=== PATIENT | female | born 1945 | race Caucasian/White ===

== ENCOUNTER 2018-12-08 07:53 | Outpatient (CLI) | payer MEDICARE, OTHER, SELFPAY ==
[2018-12-08 10:51] LABS: Abs Immature Grans 0.02 k/cumm (0.0-0.09); Absolute Basophil Count 0.03 k/cumm (0.0-0.2); Absolute Eosinophil Count 0.17 k/cumm (0.0-0.7); Absolute Lymphocyte Count 2.37 k/cumm (1.2-3.4); Absolute Monocyte Count 0.74 k/cumm (0.11-0.7); Absolute Neutrophil Count 3.05 k/cumm (1.2-6.7); Basophils % 0.5; Eosinophils % 2.7; HCT 41.4 % (36.0-46.0); HGB 14.2 g/dL (12.0-15.5); Immature Grans % 0.3; Lymphocytes % 37.1; Mean Corp. HGB Concentration 34.3 g/dL (32.0-36.0); Mean Corpuscular Hemoglobin 31.8 pg (27.0-33.0); Mean Corpuscular Volume 92.6 fL (80-95); Mean Platelet Volume 9.3 fL (8.0-11.0); Monocytes % 11.6; Neutrophils % 47.8; Platelet Count 285 x1000/uL (130-400); RBC 4.47 m/cumm (4.00-5.20); RBC Distribution Width 12.6 % (11.7-14.6); White Blood Cell Count 6.38 k/cumm (4.4-10.8)
[2018-12-08 11:49] LABS: Anion Gap 9.1 mmol/L (3-11); BUN 23 mg/dL (7-18); CO2 30.9 mmol/L (21.0-32.0); CREATININE 0.83 mg/dL (0.55-1.02); Calcium 9.4 mg/dL (8.5-10.1); Chloride 99 mmol/L (98-107); Glucose 89 mg/dL (70-100); Sodium 139 mmol/L (136-145); TSH 6.57 uIU/mL (0.358-3.74)
== END 2018-12-08 08:13 ==
PROVIDERS: PCP Internal Medicine; Visit Provider Internal Medicine
DX: E03.9 Hypothyroidism, unspecified (principal); K22.5 Diverticulum of esophagus, acquired
CPT/HCPCS: 36415; 80048; 84443; 85025

== ENCOUNTER 2019-01-18 13:29 | Outpatient (CLI) | payer MEDICARE, OTHER, SELFPAY ==
[2019-01-18 16:23] LABS: TSH 0.92 uIU/mL (0.358-3.74)
== END 2019-01-18 13:49 ==
PROVIDERS: PCP Internal Medicine; Visit Provider Internal Medicine
DX: E03.9 Hypothyroidism, unspecified (principal)
CPT/HCPCS: 36415; 84443

== ENCOUNTER 2019-07-26 11:09 | Outpatient (CLI) | payer MEDICARE, SELFPAY ==
[2019-07-26 12:36] LABS: TSH 0.83 uIU/mL (0.36-3.74)
== END 2019-07-26 11:29 ==
PROVIDERS: PCP Internal Medicine; Visit Provider Internal Medicine
DX: E03.9 Hypothyroidism, unspecified (principal)
CPT/HCPCS: 36415; 84443

== ENCOUNTER 2020-05-27 07:41 | Emergency (ER) | payer MEDICARE, SELFPAY ==
[2020-05-27 07:51] VITALS: BP 157/91; PULSE 73; RESP 18; TEMP 36.5; O2SAT 100
--- NOTE | 2020-05-27 08:12 | ED.GENADUL_ITS ---
Discharge Plan Disposition Patient Disposition: HOME Condition: Stable Discharge Details Clinical Impression: Rash and nonspecific skin eruption Primary Care Provider: Celeste Franks ED Provider: Nan Shen Home Meds and New Rx's Prescriptions: New triamcinolone acetonide 0.1 % cream 1 applic topical TID PRN (Reason: rash) 5 Days Qty: 15 RF: 0 prednisone 20 mg tablet 20 mg PO DAILY 5 Days Qty: 5 RF: 0 No Action levothyroxine [Levoxyl] 50 MCG tablet 68.5 mg PO DAILY RF: 0 Discharge Instructions Instructions: Acute Rash (ED) Additional Instructions: Follow up with primary care provider in 3-5 days. Return to ED sooner if any worsening or concerns. Increase oral fluids. Take 1-2 Benadryl tablets every 6-8 hours as needed for rash and itching. Take medications as prescribed. Use topical triamcinolone cream up to 3 times a day as needed. Do not use longer than 5 days. Referrals: Celeste Franks [Primary Care Provider] - Discharge Data Discharge Date/Time-TO BE ENTERED AT DEPARTURE: 05/27/20 09:01 Medical Decision Making 75-year-old female presents to the ER with chief complaint of rash. Patient reports rash which began on her face approximately 5 days ago which is now spread to her right gurinder-orbital space, chest, bilateral groin. Positive pruritus. She reports that she had been outside the day before on a hike and on Thursday was at a ballet class when began with a red face she thought initially she been stung by a bee. And the itching began. She denies any nausea, fever, any other complaints. She has no erythema to her conjunctive a, no drainage from her eye. She has not taken any medications or any treatments at home prior to arrival. She has a history of hypothyroid and takes levothyroxine. She does have multiple allergies to Ceclor, erythromycin, sulfa, mangoes. Patient was given prednisone 60 mg in department, 40 mg Pepcid p.o. Decrease the itching. Patient declined Benadryl this time since she is driving due to sedation effects. Instructed to take 1 or 2 Benadryl tablets every 6-8 hours at home while symptoms persist. Was prescribed 40 mg prednisone daily x5 days. Instructed to take Pepcid [id number] daily while symptoms persist. Prescription given for triamcinolone cream to apply to affected area 2-3 times a day not to exceed longer than 5 days. Instructed to follow-up with PCP, verbalized understanding. Differential diagnosis includes contact dermatitis, scabies, allergic dermatitis HPI General Mode of arrival: ambulatory . Date/Time Provider Initiated Documentation: 05/27/20 07:59 . Limitations to Documentation: no limitations . Information obtained by: patient . HPI Narrative: 75-year-old female presents to the ER with chief complaint of rash. Patient reports rash which began on her face approximately 5 days ago which is now spread to her right gurinder-orbital space, chest, bilateral groin. Positive pruritus. She reports that she had been outside the day before on a hike and on Thursday was at a ballet class when began with a red face she thought initially she been stung by a bee. And the itching began. She denies any nausea, fever, any other complaints. She has no erythema to her conjunctive a, no drainage from her eye. She has not taken any medications or any treatments at home prior to arrival. She has a history of hypothyroid and takes levothyroxine. She does have multiple allergies to Ceclor, erythromycin, sulfa, mangoes. Related Data Home Medications Medication Instructions Recorded Confirmed levothyroxine [Levoxyl] 68.5 mg PO DAILY 10/26/14 05/27/20 prednisone 20 mg PO DAILY 5 Days #5 tab 05/27/20 triamcinolone acetonide 1 applic TOPICAL TID PRN 5 Days 05/27/20 #15 g Previous Rx's Medication Instructions Recorded prednisone 20 mg PO DAILY 5 Days #5 tab 05/27/20 triamcinolone acetonide 1 applic TOPICAL TID PRN 5 Days 05/27/20 #15 g Allergies Allergy/AdvReac Type Severity Reaction Status Date / Time cefaclor [From Ceclor] Allergy Unverified 05/27/20 07:55 erythromycin base Allergy Unverified 05/27/20 07:55 shellfish derived Allergy Unverified 05/27/20 07:55 Sulfa (Sulfonamide Allergy Unverified 05/27/20 07:55 Antibiotics) mangos Allergy Uncoded 05/27/20 07:55 General Stated Complaint: RashLesion REEMA: 4 Review of Systems Narrative: Constitutional: Negative for weight loss, alert and oriented, well groomed, normal body habitus, appears comfortable. HEENT: Denies trauma, headaches, blurry vision, nasal discharge, sore throat, trouble swallowing. Chest: Denies chest pain, palpitations, irregular rhythm, hypertension. Respiratory: Denies Shortness of breath, cough, hemoptysis. GI: Denies abdominal pain, nausea, vomiting, diarrhea, constipation. : Denies dysuria, hematuria, flank pain, rectal bleeding. Skin: Complaining of rash to her right cheek right eye, chest and bilateral groin positive itching. [facility] Social History Smoking/Tobacco Use Status: Never Alcohol Intake: never Drug use: Never Substance use type: does not use Do you feel safe at home: Yes Do you feel safe in your relationship?: Yes Exam Narrative Exam Narrative: Constitutional: Alert and oriented x3. Appears stated age. Normal body habitus. Head: Normocephalic, no trauma. Eyes: Pupils PERRLA, Red reflex noted, EOM's intact. Eyelids symmetrical without lesions, discharge, or swelling. ENT: Bilateral TM's WNL, External ear normal to inspection, no mastoid TTP, swelling, or erythema, Nasal turbinates WNL, no nasal discharge. Normal dentition, Posterior pharynx WNL, no exudate. Chest: RRR, Normal S1, S2, distal pulses intact. Resp: Lungs clear to auscultation bilaterally, no wheezes, rales, or rhonchi. Musculoskeletal: Normal gait, 5/5 strength to all four extremities. Skin: Red raised area surrounding her right eye, small maculopapular red raised area to her chest and bilateral groin. Capillary refill less than 2 sec. Neurologic: Cranial nerves II-XII intact. Alert and oriented x 3. DTR's intact. Hematologic/Lymphatic: No ecchymosis, no lymphadenopathy. Course Vital Signs Vital signs: Vital Signs Temperature 36.5 C 05/27/20 07:51 Pulse 73 05/27/20 07:51 Respiratory Rate 18 05/27/20 07:51 Blood Pressure 157/91 H 05/27/20 07:51 Pulse Oximetry 100 05/27/20 07:51 Temperature 36.5 C 05/27/20 07:51 Temperature Source Temporal Artery Scan 05/27/20 07:51 Pulse 73 05/27/20 07:51 Respiratory Rate 18 05/27/20 07:51 Respiratory Effort Non-Labored 05/27/20 07:57 Blood Pressure 157/91 H 05/27/20 07:51 Blood Pressure Position Sitting 05/27/20 07:51 Pulse Oximetry 100 05/27/20 07:51 Oxygen Delivery Method Room Air 05/27/20 07:51 Oxygen Flow Rate 0 05/27/20 07:51 Pain Level 8 05/27/20 07:51
[2020-05-27] MEDS: predniSONE 20 MG TAB 60 MG PO (08:22)
[2020-05-27] MEDS: Famotidine 20 MG TAB 40 MG PO (08:22)
--- NOTE | 2020-05-28 07:53 | NUR.NOTE ---
Nursing Note: Patient called asking about the dose of the Prednisone that was given in the ED. She stated that she felt her heart racing and did not feel well last night overnight. Consulted with AMANDA Pulliam and the patient was told that heart racing and jitteryness is a side effect. It's been 24 hrs she can take a dose, but if she is uncomfortable she can wait and talk to her PCP. She stated she is going to call her PCP for direction and I will fax the provider note to her PCP. Claudette Woo, PCP pn [phone] F [phone]
== END 2020-05-27 09:01 | disposition home or self-care (01) ==
PROVIDERS: Emergency Provider Registered Nurse Emergency; PCP Internal Medicine
DX: R21 Rash and other nonspecific skin eruption (principal); L29.9 Pruritus, unspecified
CPT/HCPCS: 99283; J7512

== ENCOUNTER 2020-10-11 02:55 | Outpatient (CLI) | payer MEDICARE, SELFPAY ==
[2020-10-11 10:39] LABS: Abs Immature Grans 0.02 10^3/uL (0.0-0.06); Absolute Basophil Count 0.04 10^3/uL (0.0-0.2); Absolute Eosinophil Count 0.21 10^3/uL (0.0-0.7); Absolute Monocyte Count 0.81 10^3/uL (0.1-0.8); Absolute Neutrophil Count 3.97 10^3/uL (1.2-6.7); Basophils % 0.5; Eosinophils % 2.7; HCT 40.8 % (36.0-46.0); HGB 13.8 g/dL (11.2-15.7); Immature Grans % 0.3; MCH 31.2 pg (27.0-33.0); MCHC 33.8 % (32.0-36.0); MCV 92.3 fL (80-95); Monocytes % 10.6; Neutrophils % 51.9; Nucleated RBC 0 %; Platelet Count 279 10^3/uL (130-400); RBC 4.42 10^6/uL (3.93-5.22); RDW 12.3 % (11.7-14.6); RDW-SD 41.6 fL; WBC 7.65 10^3/uL (4.4-10.8)
[2020-10-11 11:50] LABS: Anion Gap 8.9 mmol/L (3-11); BUN 20 mg/dL (7-18); CO2 28.1 mmol/L (21.0-32.0); CREATININE 0.8 mg/dL (0.55-1.02); Calcium 9.4 mg/dL (8.5-10.1); Chloride 103 mmol/L (98-107); Glucose 73 mg/dL (74-106); Potassium 4.1 mmol/L (3.5-5.1); Sodium 140 mmol/L (136-145); TSH 2.42 uIU/mL (0.36-3.74); Vitamin B12 1124 pg/mL (193-986)
== END 2020-10-11 02:56 | disposition home or self-care (01) ==
LOC: LBO 02:55
PROVIDERS: PCP Internal Medicine; Visit Provider Internal Medicine
DX: M85.88 Other specified disorders of bone density and structure, other site (principal); E03.9 Hypothyroidism, unspecified
CPT/HCPCS: 36415; 80048; 82607; 84443; 85025

== ENCOUNTER 2021-01-31 15:51 | Outpatient (REF) | payer MEDICARE, SELFPAY ==
[2021-02-04 10:50] LABS: Lyme Ab w Rflx to Lyme Confirm Negative (Negative)
[2021-02-04 18:06] LABS: Anaplasma phagocytophilum Negative (Negative); B. miyamotoi PCR Negative (Negative); Babesia divergens/MO-1 Negative (Negative); Babesia duncani Negative (Negative); Babesia microti Negative (Negative); Ehrlichia chaffeensis Negative (Negative); Ehrlichia ewingii/canis Negative (Negative); Ehrlichia muris eauclairensis Negative (Negative)
== END 2021-01-31 15:52 | disposition home or self-care (01) ==
LOC: LBN 15:51
PROVIDERS: PCP Nurse Practitioner Family; Visit Provider Nurse Practitioner Family
DX: W57.XXXA Bitten or stung by nonvenomous insect and other nonvenomous arthropods, initial encounter (principal); T14.8XXA Other injury of unspecified body region, initial encounter
CPT/HCPCS: 87798; 86618

== ENCOUNTER 2021-04-05 02:40 | Outpatient (CLI) | payer MEDICARE, SELFPAY ==
[2021-04-05 09:44] LABS: Abs Immature Grans 0.03 10^3/uL (0.0-0.06); Absolute Basophil Count 0.02 10^3/uL (0.0-0.2); Absolute Eosinophil Count 0.13 10^3/uL (0.0-0.7); Absolute Lymphocyte Count 2.49 10^3/uL (1.2-3.4); Absolute Monocyte Count 0.74 10^3/uL (0.1-0.8); Absolute Neutrophil Count 3.54 10^3/uL (1.2-6.7); Basophils % 0.3; Eosinophils % 1.9; HCT 43.8 % (36.0-46.0); HGB 14.6 g/dL (11.2-15.7); Immature Grans % 0.4; Lymphocytes % 35.8; MCH 31.2 pg (27.0-33.0); MCHC 33.3 % (32.0-36.0); MCV 93.6 fL (80-95); MPV 8.9 fL (8.0-11.0); Monocytes % 10.6; Nucleated RBC 0 %; Platelet Count 267 10^3/uL (130-400); RBC 4.68 10^6/uL (3.93-5.22); RDW 12.4 % (11.7-14.6); RDW-SD 42.6 fL; WBC 6.95 10^3/uL (4.4-10.8)
[2021-04-05 10:51] LABS: Anion Gap 9.7 mmol/L (3-11); BUN 15 mg/dL (7-18); CO2 29.3 mmol/L (21.0-32.0); CREATININE 0.8 mg/dL (0.55-1.02); Calcium 9.3 mg/dL (8.5-10.1); Chloride 104 mmol/L (98-107); Glucose 66 mg/dL (74-106); Potassium 3.9 mmol/L (3.5-5.1); Sodium 143 mmol/L (136-145); TSH 2.41 uIU/mL (0.36-3.74); Vitamin B12 648 pg/mL (193-986)
== END 2021-04-05 02:41 | disposition home or self-care (01) ==
LOC: LBO 02:40
PROVIDERS: PCP Internal Medicine; Visit Provider Internal Medicine
DX: E03.9 Hypothyroidism, unspecified (principal); M85.88 Other specified disorders of bone density and structure, other site
CPT/HCPCS: 36415; 80048; 82607; 84443; 85025

== ENCOUNTER 2021-10-22 03:56 | Outpatient (CLI) | payer MEDICARE, SELFPAY ==
[2021-10-22 10:25] LABS: Abs Immature Grans 0.03 10^3/uL (0.0-0.06); Absolute Basophil Count 0.04 10^3/uL (0.0-0.2); Absolute Eosinophil Count 0.17 10^3/uL (0.0-0.7); Absolute Monocyte Count 0.63 10^3/uL (0.1-0.8); Absolute Neutrophil Count 3.21 10^3/uL (1.2-6.7); Basophils % 0.6; Eosinophils % 2.5; HCT 41.9 % (36.0-46.0); HGB 14.2 g/dL (11.2-15.7); Immature Grans % 0.4; Lymphocytes % 39.8; MCH 31.5 pg (27.0-33.0); MCHC 33.9 % (32.0-36.0); MCV 92.9 fL (80-95); Monocytes % 9.3; Neutrophils % 47.4; Nucleated RBC 0 %; Platelet Count 256 10^3/uL (130-400); RBC 4.51 10^6/uL (3.93-5.22); RDW 12.8 % (11.7-14.6); RDW-SD 43.8 fL; WBC 6.78 10^3/uL (4.4-10.8)
[2021-10-22 11:30] LABS: ALT 24 U/L (14-59); AST 25 U/L (15-37); Albumin 4.1 g/dL (3.4-5.0); Alkaline Phosphatase 82 U/L (46-116); Anion Gap 12.1 mmol/L (3-11); BUN 17 mg/dL (7-18); Bilirubin, Total 0.5 mg/dL (0.2-1.0); CO2 27.9 mmol/L (21.0-32.0); CREATININE 0.8 mg/dL (0.55-1.02); Calcium 9.2 mg/dL (8.5-10.1); Calculated LDL 166 mg/dL (<100); Chloride 103 mmol/L (98-107); Cholesterol 265 mg/dL (<200); Glucose 75 mg/dL (74-106); HDL Cholesterol 60 mg/dL (40-60); Potassium 3.9 mmol/L (3.5-5.1); Sodium 143 mmol/L (136-145); TSH 2.32 uIU/mL (0.36-3.74); Total Protein 7.2 g/dL (6.4-8.2); Triglyceride 196 mg/dL (<150)
== END 2021-10-22 03:57 | disposition home or self-care (01) ==
LOC: LBO 03:56
PROVIDERS: PCP Internal Medicine; Visit Provider Internal Medicine
DX: E03.9 Hypothyroidism, unspecified (principal); K21.9 Gastro-esophageal reflux disease without esophagitis
CPT/HCPCS: 36415; 80053; 80061; 84443; 85025

== ENCOUNTER 2022-04-22 03:26 | Outpatient (CLI) | payer MEDICARE, SELFPAY ==
[2022-04-22 07:39] LABS: Abs Immature Grans 0.02 10^3/uL (0.0-0.06); Absolute Basophil Count 0.04 10^3/uL (0.0-0.2); Absolute Eosinophil Count 0.32 10^3/uL (0.0-0.7); Absolute Lymphocyte Count 3.13 10^3/uL (1.2-3.4); Absolute Monocyte Count 0.97 10^3/uL (0.1-0.8); Absolute Neutrophil Count 3.12 10^3/uL (1.2-6.7); Basophils % 0.5; Eosinophils % 4.2; HGB 13.8 g/dL (11.2-15.7); Immature Grans % 0.3; Lymphocytes % 41.2; MCH 31.2 pg (27.0-33.0); MCHC 33.7 % (32.0-36.0); MCV 93 fL (80-95); MPV 8.9 fL (8.0-11.0); Monocytes % 12.8; Platelet Count 274 10^3/uL (130-400); RBC 4.42 10^6/uL (3.93-5.22); RDW 12.2 % (11.7-14.6); RDW-SD 41.6 fL
[2022-04-22 08:11] LABS: Calculated LDL 163 mg/dL (<100); Cholesterol 243 mg/dL (<200); HDL Cholesterol 56 mg/dL (40-60); Triglyceride 123 mg/dL (<150)
[2022-04-22 08:23] LABS: C-Reactive Protein 0.17 mg/dL (0.0-0.3)
[2022-04-22 17:31] LABS: Rheumatoid Factor <8.6 IU/mL (<12.0)
[2022-04-23 09:30] LABS: Cyclic Citrullinated Peptide <2.5 U/mL (<5.0); Hepatitis C Ab w Rflx HCV PCR Negative (Negative)
[2022-04-23 11:06] LABS: Lyme Ab w Rflx to Lyme Confirm Negative (Negative)
[2022-04-23 14:03] LABS: ANA Interpretation Positive (Negative); ANA Titer Pattern 1:640 Homogeneous
== END 2022-04-22 03:27 | disposition home or self-care (01) ==
LOC: LBO 03:26
PROVIDERS: PCP Internal Medicine; Visit Provider Internal Medicine
DX: E78.49 Other hyperlipidemia (principal); M25.50 Pain in unspecified joint; Z11.59 Encounter for screening for other viral diseases
CPT/HCPCS: 36415; 80061; 86200; 86803; 85025; 86038; 86140; 86431; 86618

== ENCOUNTER → 2022-07-09 01:03 | Outpatient (CLI) | payer MEDICARE, SELFPAY ==
--- NOTE | 2022-07-09 | DI.MAMMO_ITS ---
Exam(s) MAMMO SCREENING EXAM: MAMMO SCREENING CLINICAL HISTORY: SCREENING, Z12.31 TECHNIQUE: Bilateral full field digital CC and MLO mammographic images were obtained with 3D tomosyn thesis and utilizing computer aided detection (CAD). COMPARISON: Available for comparison. FINDINGS: Masses/Architectural Distortion: None seen. Microcalcifications: No suspicious pleomorphic-type are seen. Skin Thickening/Nipple Retraction: None. IMPRESSION: 1. No significant interval change with no specific features of malignancy noted. 2. Unless there is more urgent need, screening mammography is recommended, as per [employer] guidelines. BI-RADS Category 1 - Negative Breast Density - Category B - Scattered areas of fibroglandular density Breast density category C or D implies that the patient has dense breast tissue. Dense breast tissue is very common and is not abnormal but dense breast tissue can make it harder to find cancer on a ma mmogram. Also, dense breast tissue may increase their breast cancer risk. This information about the result of the mammogram report was provided to the patient to raise their awareness. Use this report when you speak with the patient about their risks for breast cancer, which includes their family hist ory. At that time, you may recommend for more screening tests (Ultrasound or MRI) as they might be us eful based on their risk. A negative radiographic report should not delay biopsy if a dominant or clinically suspicious mass is present. Up to ten percent of cancers are not identified on mammography. A negative report may reinforce clinical impression. Adenosis and dense breasts may obscure an underlying neoplasm. False positive reports average 6 to 10%. Patient will receive a letter notifying them of these results.
== END ==
PROVIDERS: PCP Internal Medicine; Visit Provider Internal Medicine
DX: Z12.31 Encounter for screening mammogram for malignant neoplasm of breast (principal)
CPT/HCPCS: 77063; 77067

== ENCOUNTER 2022-11-04 03:38 | Outpatient (CLI) | payer MEDICARE, SELFPAY ==
[2022-11-04 09:37] LABS: Calculated LDL 158 mg/dL (<100); Cholesterol 239 mg/dL (<200); HDL Cholesterol 61 mg/dL (40-60); TSH 2.24 uIU/mL (0.36-3.74); Triglyceride 104 mg/dL (<150)
[2022-11-04 17:37] LABS: CRP, High Sensitivity 1.27 mg/L (See Note)
[2022-11-06 11:53] LABS: Lipoprotein (a) 128 nmol/L (<75)
== END 2022-11-04 03:39 | disposition home or self-care (01) ==
LOC: LBO 03:38
PROVIDERS: PCP Internal Medicine; Visit Provider Internal Medicine
DX: E78.00 Pure hypercholesterolemia, unspecified (principal); E03.9 Hypothyroidism, unspecified
CPT/HCPCS: 36415; 80061; 83695; 86141; 84443

== ENCOUNTER 2023-01-27 04:19 | Outpatient (CLI) | payer MEDICARE, SELFPAY ==
[2023-01-27 12:49] LABS: Calculated LDL 115 mg/dL (<100); Cholesterol 184 mg/dL (<200); HDL Cholesterol 52 mg/dL (40-60); Triglyceride 85 mg/dL (<150)
== END 2023-01-27 04:20 | disposition home or self-care (01) ==
LOC: LOS 04:19
PROVIDERS: PCP Internal Medicine
DX: E78.5 Hyperlipidemia, unspecified (principal)
CPT/HCPCS: 36415; 80061

== ENCOUNTER 2023-11-02 13:42 | Outpatient (REF) | payer MEDICARE, SELFPAY ==
[2023-11-02 21:40] LABS: Bilirubin Negative (Negative); Blood Negative (Negative); Clarity Clear (Clear); Glucose Negative (Negative); Ketones Negative (Negative); Leukocyte Esterase Negative (Negative); Nitrite Negative (Negative); Urobilinogen 0.2 mg/dL (Up to 0.2); pH 5.5 (5-8)
== END 2023-11-02 13:43 | disposition home or self-care (01) ==
LOC: LBN 13:42
PROVIDERS: PCP Internal Medicine; Visit Provider Nurse Practitioner Family
DX: R39.89 Other symptoms and signs involving the genitourinary system (principal)
CPT/HCPCS: 81003

== ENCOUNTER 2023-12-28 05:41 | Outpatient (CLI) | payer MEDICARE, SELFPAY ==
[2023-12-28 12:31] LABS: Abs Immature Grans 0.02 10^3/uL (0.0-0.06); Absolute Basophil Count 0.03 10^3/uL (0.0-0.2); Absolute Eosinophil Count 0.16 10^3/uL (0.0-0.7); Absolute Lymphocyte Count 2.23 10^3/uL (1.2-3.4); Absolute Monocyte Count 0.61 10^3/uL (0.1-0.8); Absolute Neutrophil Count 2.36 10^3/uL (1.2-6.7); Basophils % 0.6; HCT 41.1 % (36.0-46.0); HGB 14.1 g/dL (11.2-15.7); Immature Grans % 0.4; Lymphocytes % 41.2; MCHC 34.3 % (32.0-36.0); MCV 93 fL (80-95); MPV 9.3 fL (8.0-11.0); Monocytes % 11.3; Neutrophils % 43.5; Platelet Count 278 10^3/uL (130-400); RBC 4.41 10^6/uL (3.93-5.22); RDW 12.7 % (11.7-14.6); WBC 5.41 10^3/uL (4.4-10.8)
[2023-12-28 13:18] LABS: Vitamin D 25 Total 32.2 ng/mL (30-100)
[2023-12-28 13:34] LABS: ALT 20 U/L (14-59); AST 23 U/L (15-37); Alkaline Phosphatase 88 U/L (46-116); Anion Gap 7.8 mmol/L (3-11); BUN 17 mg/dL (7-18); Bilirubin, Total 0.5 mg/dL (0.2-1.0); CO2 28.2 mmol/L (21.0-32.0); CREATININE 0.9 mg/dL (0.55-1.02); Calcium 9.2 mg/dL (8.5-10.1); Calculated LDL 112 mg/dL (<100); Chloride 103 mmol/L (98-107); Cholesterol 184 mg/dL (<200); Estimated GFR 66.26 (mL/min/1.73m2); Glucose 84 mg/dL (74-106); HDL Cholesterol 59 mg/dL (40-60); Potassium 3.8 mmol/L (3.5-5.1); Sodium 139 mmol/L (136-145); Total Protein 7.3 g/dL (6.4-8.2); Triglyceride 69 mg/dL (<150); Vitamin B12 582 pg/mL (193-986)
== END 2023-12-28 05:42 | disposition home or self-care (01) ==
LOC: LOS 05:41
PROVIDERS: PCP Internal Medicine; Visit Provider Internal Medicine
DX: E78.5 Hyperlipidemia, unspecified (principal); E03.9 Hypothyroidism, unspecified; M85.89 Other specified disorders of bone density and structure, multiple sites
CPT/HCPCS: 36415; 80053; 80061; 82306; 82607; 84443; 85025

== ENCOUNTER 2024-07-27 00:54 | Outpatient (CLI) | payer MEDICARE, SELFPAY ==
--- NOTE | 2024-07-27 | DI.MAMMO_ITS ---
Exam(s) MAMMO SCREENING EXAM: MAMMO SCREENING CLINICAL HISTORY: Screening, Z12.31 TECHNIQUE: Bilateral full field digital CC and MLO mammographic images were obtained with 3D tomosyn thesis and utilizing computer aided detection (CAD). COMPARISON: Available for comparison. FINDINGS: Masses/Architectural Distortion: None seen. Microcalcifications: No suspicious pleomorphic-type are seen. Skin Thickening/Nipple Retraction: None. IMPRESSION: 1. No significant interval change with no specific features of malignancy noted. 2. Unless there is more urgent need, screening mammography is recommended, as per [employer] guidelines. BI-RADS Category 1 - Negative Breast Density - Category B - Scattered areas of fibroglandular density Breast density category C or D implies that the patient has dense breast tissue. Dense breast tissue is very common and is not abnormal but dense breast tissue can make it harder to find cancer on a ma mmogram. Also, dense breast tissue may increase their breast cancer risk. This information about the result of the mammogram report was provided to the patient to raise their awareness. Use this report when you speak with the patient about their risks for breast cancer, which includes their family hist ory. At that time, you may recommend for more screening tests (Ultrasound or MRI) as they might be us eful based on their risk. A negative radiographic report should not delay biopsy if a dominant or clinically suspicious mass is present. Up to ten percent of cancers are not identified on mammography. A negative report may reinforce clinical impression. Adenosis and dense breasts may obscure an underlying neoplasm. False positive reports average 6 to 10%. Patient will receive a letter notifying them of these results.
== END 2024-07-27 01:14 ==
LOC: DI 00:54
PROVIDERS: PCP Internal Medicine; Visit Provider Internal Medicine
DX: Z12.31 Encounter for screening mammogram for malignant neoplasm of breast (principal); R92.323 Mammographic fibroglandular density, bilateral breasts
CPT/HCPCS: 77063; 77067

== ENCOUNTER 2024-11-21 02:47 | Outpatient (CLI) | payer MEDICARE, SELFPAY ==
[2024-11-21 12:16] LABS: Abs Immature Grans 0.03 10^3/uL (0.0-0.06); Absolute Basophil Count 0.04 10^3/uL (0.0-0.2); Absolute Eosinophil Count 0.21 10^3/uL (0.0-0.7); Absolute Lymphocyte Count 2.34 10^3/uL (1.2-3.4); Absolute Monocyte Count 0.55 10^3/uL (0.1-0.8); Absolute Neutrophil Count 3.91 10^3/uL (1.2-6.7); Basophils % 0.6 %; HCT 40.8 % (36.0-46.0); HGB 13.4 g/dL (11.2-15.7); Immature Grans % 0.4 %; Lymphocytes % 33.1 %; MCH 31.3 pg (27.0-33.0); MCHC 32.8 % (32.0-36.0); MCV 95 fL (80-95); MPV 9.6 fL (8.0-11.0); Monocytes % 7.8 %; Neutrophils % 55.1 %; Platelet Count 286 10^3/uL (130-400); RBC 4.28 10^6/uL (3.93-5.22); RDW 12.6 % (11.7-14.6); RDW-SD 43.8 fL; WBC 7.08 10^3/uL (4.4-10.8)
[2024-11-21 12:31] LABS: ALT 19 U/L (14-59); AST 25 U/L (15-37); Albumin 3.7 g/dL (3.4-5.0); Alkaline Phosphatase 97 U/L (46-116); Anion Gap 6.3 mmol/L (3-11); BUN 15 mg/dL (7-18); Bilirubin, Total 0.6 mg/dL (0.2-1.0); CO2 30.7 mmol/L (21.0-32.0); CREATININE 0.9 mg/dL (0.55-1.02); Calcium 9.2 mg/dL (8.5-10.1); Chloride 104 mmol/L (98-107); Estimated GFR 65.84 (mL/min/1.73m2); Glucose 83 mg/dL (74-106); Potassium 3.6 mmol/L (3.5-5.1); Sodium 141 mmol/L (136-145); Total Protein 7.3 g/dL (6.4-8.2)
[2024-11-21 19:08] LABS: Rheumatoid Factor <8.6 IU/mL (<12.0)
[2024-11-22 09:36] LABS: Cyclic Citrullinated Peptide <2.5 U/mL (<5.0)
== END 2024-11-21 02:48 | disposition home or self-care (01) ==
PROVIDERS: PCP Internal Medicine; Visit Provider Internal Medicine
DX: M25.50 Pain in unspecified joint (principal)
CPT/HCPCS: 36415; 80053; 86200; 85025; 86431

== ENCOUNTER 2024-11-23 00:47 | Outpatient (CLI) | payer MEDICARE, SELFPAY ==
--- NOTE | 2024-11-23 | DI.RAD_ITS ---
Exam(s) XR CERVICAL SPINE COMP 4-5V EXAM: XR CERVICAL SPINE COMP 4-5V CLINICAL HISTORY: WORSENING NECK PAIN,M54.2,? OA. TECHNIQUE: 2D digital imaging was performed. Five views were performed. COMPARISON: No exams were available for comparison FINDINGS: BONES: No fracture or destructive lesion. Vertebral bodies are unremarkable. Bones appear osteopeni c. There are prominent facet degenerative changes. There is encroachment into the neural foramen at C3-4 through C5-6 on the left. DISKS: Moderate to severe narrowing of the C 6 7 disc space. The remaining intervertebral disc space s are maintained. ALIGNMENT: Mild retrolisthesis at C 4 5 and C5-6 secondary to facet degenerative changes. The odonto id and atlantoaxial articulations are normal. SOFT TISSUE: Normal. The lung apices are clear. IMPRESSION: Significant nerve changes of the facet joints causing left neural foraminal narrowing. Degenerative disc changes at C6-7. DATA REPOSITORY: RADIATION DOSE DELIVERED:
--- NOTE | 2024-11-23 | DI.RAD_ITS ---
Exam(s) XR ARTHRITIS SERIES EXAM: XR ARTHRITIS SERIES CLINICAL HISTORY: ARTHRALGIA,M25.50,WORSENING HAND PAIN, ? INFLAMMATORY ARTHRITIS,. TECHNIQUE: 2D digital imaging was performed. COMPARISON: No exams were available for comparison FINDINGS: Two views of both hands (PA and [place] views). There is no evidence of fracture nor subluxations. There are moderate degenerative changes at the 1st carpometacarpal joint of both wrists. Other artic ulations in both wrists appear intact and scapholunate distance is are normal. No significant narrow ing of the radiocarpal joints. The metacarpophalangeal joints of both hands appear unremarkable. The proximal interphalangeal joint s of both hands also appear relatively unremarkable. The main findings are at the level the DIP joints of both hands... In the left hand this is most severe at the DIP joint of the 2nd-index and 5th fingers with advanced degenerative changes and partial fusion across these joints. A lesser amount of the same is evident at the DIP joint of the 3rd-middle finger. There appears to be relative sparing of the DIP joint of the 4th-ring finger of the left hand. In the right hand the most advanced degenerative changes are at the DIP joints of the 2nd-index and 5 th fingers, with relative sparing of the DIP joints of the 3rd and 4th fingers. With regards to the thumbs, there are degenerative changes at the 1st carpometacarpal joints bilatera lly. There are no significant findings at the metacarpophalangeal joints of the thumbs. The interph alangeal joints of both thumbs exhibit some degenerative changes, more prominent on the right side. IMPRESSION: Multilevel bilateral findings as described above, most prominent at the DIP joint levels, as describe d individually above. There is relative sparing of the metacarpophalangeal joints of both hands as w ell as the proximal interphalangeal joints of both hands. No osseous lesions evident. No radiopaque foreign bodies. DATA REPOSITORY: RADIATION DOSE DELIVERED:
== END 2024-11-23 01:07 ==
LOC: DI 00:47
PROVIDERS: PCP Internal Medicine; Visit Provider Internal Medicine
DX: M19.042 Primary osteoarthritis, left hand (principal); M19.041 Primary osteoarthritis, right hand
CPT/HCPCS: 72050; 73120

== ENCOUNTER 2025-02-28 01:42 | Outpatient (CLI) | payer MEDICARE, SELFPAY ==
--- NOTE | 2025-02-28 | DI.DEXA_ITS ---
Exam(s) XR DEXA BONE DENSITY W/WO CRAIG EXAM: XR DEXA BONE DENSITY W/WO CRAIG CLINICAL HISTORY: Asymptomatic postmenopausal state, Z78.0 TECHNIQUE: Routine DEXA evaluation of the lumbar spine, hip, or forearm. COMPARISON: No exams were available for comparison FINDINGS: Performed on a Hologic unit. Lateral image: No compression fracture evident. Lumbar Spine total T-score: -2.9 which is in the osteoporosis range. Hip total T-score:-2.2 which is osteopenia range. Independent reading at the level of the femoral neck yields T-score of -2.8 which is osteoporosis range Forearm total T-score: -3.6 which is in the osteoporosis range. IMPRESSION: Bone mineral density measures in the osteoporosis range. Fracture risk is high. Note: Any spine fracture indicates 5x risk for subsequent spine fracture and 2x risk for subsequent hip fracture. World Health Organization criteria for BMD interpretation classify patients: Normal...... T- Score at or above -1.0 Osteopenic... T- Score between -1.0 and -2.5 Osteoporosis... T-Score at or below -2.5
== END 2025-02-28 02:02 ==
PROVIDERS: PCP Internal Medicine; Visit Provider Internal Medicine
DX: M81.0 Age-related osteoporosis without current pathological fracture (principal); Z78.0 Asymptomatic menopausal state
CPT/HCPCS: 77080